=== PATIENT | female | born 1990 | race African-American/Black ===

== ENCOUNTER 2017-10-16 05:13 | Inpatient (IN) | payer MEDICAID ==
[2017-10-16] MEDS ORDERED: METHYLERGONOVINE 0.2 MG INJ IM ×2 (05:30→13:00)
[2017-10-16] MEDS ORDERED: CEFAZOLIN 2 GM/50 ML (PMX) 50 ML IV (05:30)
[2017-10-16] MEDS ORDERED: OXYTOCIN 30 UNITS/LR 500 ML IV ×3 (05:30→13:00)
[2017-10-16] MEDS ORDERED: CARBOPROST 250 MCG INJ IM ×2 (05:30→13:00)
[2017-10-16] MEDS ORDERED: MISOPROSTOL 200 MCG TAB PR ×2 (05:30→13:00)
[2017-10-16] MEDS: LACTATED RINGER'S 1,000 ML IV ×2 (06:11→07:49)
[2017-10-16 06:58] LABS: ADD MAN DIFF? NO
[2017-10-16 07:12] LABS: ABNORMAL IP MESSAGE 1; BASOPHILS % 0.2 % (0.0-2.0); EOSINOPHILS # 0.2 10^3/ul (0.0-0.5); EOSINOPHILS % 1.8 % (0.0-7.0); HEMOGLOBIN 10.6 g/dl (12.0-16.0); LYMPHOCYTES # 3.3 10^3/ul (0.8-2.9); LYMPHOCYTES % 29.6 % (15.0-51.0); MEAN CORPUSCULAR HGB CONC 33.1 g/dl (32.0-37.0); MEAN CORPUSCULAR VOLUME 84.7 fl (82.0-101.0); MONOCYTE # 0.8 10^3/ul (0.3-0.9); MONOCYTES % 7.1 % (0.0-11.0); NEUTROPHIL # 6.4 10^3/ul (1.6-7.5); NEUTROPHILS % 58.6 % (39.0-77.0); PLATELET COUNT 155 10^3/UL (140-415); RED BLOOD COUNT 3.78 10^6/ul (4.20-5.40); RED CELL DISTRIBUTION WIDTH 15.8 % (11.5-14.5)
[2017-10-16] MEDS ORDERED: PHENYLephrine (100 MCG/ML) 5ML SYG ×2 (07:24→09:22)
[2017-10-16] MEDS ORDERED: OXYTOCIN 10 UNIT INJ (07:24)
[2017-10-16] MEDS ORDERED: morphine SULFATE/PF (10 MG/10 ML) INJ (07:24)
[2017-10-16 07:29] LABS: INR 0.98; PROTIME 13.1 Sec (11.9-14.9)
[2017-10-16 07:30] LABS: PARTIAL THROMBOPLASTIN TIME 27.4 Sec (25.0-35.0)
[2017-10-16 07:32] LABS: POSITIVE DIFF @See below
[2017-10-16] MEDS: CITRIC ACID/SODIUM CITRATE 15 ML CUP PO (07:49)
[2017-10-16] MEDS: ONDANSETRON 4 MG INJ IV (07:49)
[2017-10-16 07:57] LABS: HEPATITIS B SURFACE ANTIGEN NEGATIVE (NEGATIVE)
[2017-10-16] MEDS ORDERED: METOCLOPRAMIDE 10 MG INJ (09:27)
[2017-10-16] MEDS ORDERED: ONDANSETRON 4 MG INJ (09:27)
[2017-10-16] MEDS ORDERED: DEXAMETHASONE 4 MG/ML 1 ML INJ (09:27)
[2017-10-16] MEDS ORDERED: KETOROLAC 30 MG INJ (09:27)
[2017-10-16] MEDS ORDERED: morphine 4 MG/ML VIAL IV (10:00)
[2017-10-16] MEDS ORDERED: NALBUPHINE HCL (10 MG/1 ML) INJ IV (10:00)
[2017-10-16] MEDS ORDERED: ONDANSETRON 4 MG INJ IV (10:00)
[2017-10-16] MEDS ORDERED: NALOXONE (0.4 MG/ML) INJ IV (10:00)
[2017-10-16] MEDS ORDERED: ACETAMINOPHEN 500 MG TAB PO (10:00)
[2017-10-16] MEDS ORDERED: HYDROCODONE/APAP (5/325) TAB PO ×2 (10:00→13:00)
[2017-10-16] MEDS ORDERED: HYDROmorphONE 0.5 MG/0.5 ML SYG IV ×2 (10:00)
[2017-10-16] MEDS ORDERED: morphine 2 MG INJ IV (10:00)
[2017-10-16] MEDS ORDERED: MEPERIDINE 100 MG INJ (10:31)
[2017-10-16] MEDS ORDERED: OXYCODONE/ACETAMINOPHEN (5/325) TAB PO (13:00)
[2017-10-16] MEDS ORDERED: LANOLIN 7 GM TUBE TOP (13:00)
[2017-10-16] MEDS: OXYTOCIN 30 UNITS/LR 500 ML IV ×3 (15:00→23:41)
[2017-10-16 15:26] LABS: RAPID PLASMA REAGIN NONREACTIVE (NR)
[2017-10-16] MEDS: CEFAZOLIN 1 GM/50 ML (PMX) 50 ML IVPB (16:12)
[2017-10-16] MEDS: SENNA/DOCUSATE NA (8.6MG/50MG) TAB PO ×2 (21:00→21:55)
[2017-10-16] MEDS: DIPHENHYDRAMINE 50 MG INJ IV (23:46)
[2017-10-17] MEDS: LACTATED RINGER'S 500 ML IV ×2 (05:58→10:00)
[2017-10-17] MEDS: IBUPROFEN 600 MG TAB PO ×4 (05:58→17:44)
[2017-10-17] MEDS: KETOROLAC 30 MG INJ IV (06:04)
[2017-10-17] MEDS: OXYCODONE/ACETAMINOPHEN (5/325) TAB PO ×2 (09:52→15:46)
[2017-10-17] MEDS: SENNA/DOCUSATE NA (8.6MG/50MG) TAB PO (09:52)
[2017-10-17 10:59] LABS: ADD MAN DIFF? NO
[2017-10-17 11:07] LABS: BASOPHILS % 0.2 % (0.0-2.0); EOSINOPHILS # 0.1 10^3/ul (0.0-0.5); EOSINOPHILS % 0.6 % (0.0-7.0); HEMATOCRIT 30.1 % (37.0-47.0); HEMOGLOBIN 9.7 g/dl (12.0-16.0); LYMPHOCYTES # 2.8 10^3/ul (0.8-2.9); LYMPHOCYTES % 19.4 % (15.0-51.0); MEAN CORPUSCULAR HEMOGLOBIN 27.6 pg (29.0-33.0); MEAN CORPUSCULAR HGB CONC 32.2 g/dl (32.0-37.0); MEAN CORPUSCULAR VOLUME 85.5 fl (82.0-101.0); MEAN PLATELET VOLUME 12.9 fl (7.4-10.4); MONOCYTE # 1.4 10^3/ul (0.3-0.9); NEUTROPHIL # 9.9 10^3/ul (1.6-7.5); PLATELET COUNT 178 10^3/UL (140-415); RED BLOOD COUNT 3.52 10^6/ul (4.20-5.40); RED CELL DISTRIBUTION WIDTH 15.5 % (11.5-14.5)
[2017-10-17 11:07] LABS: WHITE BLOOD COUNT 14.3 10^3/ul (4.8-10.8)
[2017-10-18] MEDS: SENNA/DOCUSATE NA (8.6MG/50MG) TAB PO ×3 (00:22→21:31)
[2017-10-18] MEDS: IBUPROFEN 600 MG TAB PO ×5 (00:22→23:50)
[2017-10-18] MEDS: LACTATED RINGER'S 500 ML IV (02:44)
[2017-10-18] MEDS: OXYTOCIN 30 UNITS/LR 500 ML IV (02:44)
[2017-10-18] MEDS: HYDROCODONE/APAP (5/325) TAB PO (03:49)
[2017-10-18] MEDS: NA PHOSPHATE/BIPHOS 133 ML ENEMA PR (13:00)
[2017-10-19] MEDS: IBUPROFEN 600 MG TAB PO ×2 (05:44→12:11)
[2017-10-19] MEDS: SENNA/DOCUSATE NA (8.6MG/50MG) TAB PO (08:56)
[2017-10-19] MEDS: DIPHTH/TET/ACEL PERTUSS (ADULT) 0.5 ML VIAL IM* (09:00)
== END 2017-10-19 15:30 | disposition home or self-care (01) | DRG 766 ==
LOC: L-D 05:13 → PP1 14:33
PROVIDERS: Obstetrics & Gynecology
PROC: 10D00Z1 Extraction of Products of Conception, Low, Open Approach (ICD-10-PCS; principal; 2017-10-16 07:30)
DX: O34.219 Maternal care for unspecified type scar from previous cesarean delivery (principal); Z37.0 Single live birth; Z3A.39 39 weeks gestation of pregnancy
CPT/HCPCS: 85025; 85610; 85730; 86592; 86850; 86900; 86901; 87340; 90715; 99464